=== PATIENT | female | born 1960 | race Caucasian/White ===

== ENCOUNTER 2021-06-20 15:13 | Emergency (ER) | payer BC ==
[~2021-06-20] VITALS: Ht 154.9 cm; Wt 86.6 kg
[2021-06-20 15:32] VITALS: BP 149/95
--- NOTE | 2021-06-20 15:36 | NUR ---
18G IV ESTABLISHED IN R AC
--- NOTE | 2021-06-20 15:37 | NUR ---
CODE BRAIN INITIATED
--- NOTE | 2021-06-20 15:40 | NUR ---
PT TAKEN TO CT
--- NOTE | 2021-06-20 16:08 | NUR ---
PT RETURNED TO BED [address] [facility] [facility]
--- NOTE | 2021-06-20 16:16 | NUR ---
LAB AT PATIENT BEDSIDE COLLECTING BLOODWORK
--- NOTE | 2021-06-20 16:24 | NUR ---
61Y FEMLAE BIB SELF FROM HOME WITH C/O LEFT SIDE NUMBNESS AND SLURRED SPEECH SINCE MONDAY. PER PATIENT SHE STARTED TO FEEL WEAK AND NOTED HER LEFT SIDE STARTED MONDAY MORNING. NIHSS CURRENTLY 0 AT THIS TIME. 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 PT IS AMBULATORY, BUT IS EXPERCING SOME DIZZINESS. PT DENIES ANY CHEST PAIN, SOB, FEVER/CHILLS, N/V. PT CURRENTLY A&OX4, PLACED ON SPECIFICATION MANAGER BEDSIDE AND PUT INTO GOWN. BLOOD SUGAR 152 AT THIS TIME. PMH: DM, HTN NKA
[2021-06-20 16:29] LABS: BASOPHILS # (AUTO) 0.1 K/uL (0.00-0.22); BASOPHILS % (AUTO) 0.9 % (0.0-2.0); EOSINOPHILS # (AUTO) 0.1 K/uL (0-0.4); EOSINOPHILS % (AUTO) 1.4 % (0.0-4.0); HEMATOCRIT 38.2 % (36-48); HEMOGLOBIN 13.5 g/dL (12.0-16.0); LYMPHOCYTES # (AUTO) 1.5 K/uL (2.5-16.5); MEAN CORPUSCULAR HEMOGLOBIN 31 pg (27-31); MEAN CORPUSCULAR HGB CONC 35 g/dL (33-37); MONOCYTES # (AUTO) 0.5 K/uL (0.8-1.0); MONOCYTES % (AUTO) 6.2 % (1.7-9.3); NEUTROPHILS # (AUTO) 5.1 K/uL (1.8-7.7); NEUTROPHILS % (AUTO) 70.5 % (42.2-75.2); PLATELET COUNT (AUTO) 271 K/uL (140-450); RED BLOOD CELL COUNT(AUTO) 4.38 MIL/uL (4.20-5.40); RED CELL DISTRIBUTION WIDTH 13.1 % (11.6-13.7); WHITE BLOOD COUNT (AUTO) 7.3 K/uL (4.8-10.8)
[2021-06-20 16:51] LABS: ALBUMIN 3.9 g/dL (3.4-5.0); ANION GAP 13.6 (8-16); ASPARTATE AMINOTRANSFERASE 24 U/L (15-37); CARBON DIOXIDE 27.8 mmol/L (21-32); CHLORIDE 104 mmol/L (98-107); GFR ARICAN-AMERICAN 72 mL/min (>90); GLUCOSE 134 mg/dL (74-106); LIPASE 103 U/L (73-393); POTASSIUM 3.4 mmol/L (3.5-5.1); SODIUM SERUM 142 mmol/L (136-145); TOTAL BILIRUBIN 0.4 mg/dL (0.0-1.0); UREA NITROGEN, BLOOD 12 mg/dL (7-18)
[2021-06-20] MEDS ORDERED: POTASSIUM CHLORIDE 10 MEQ TABER PO ONE (17:15)
--- NOTE | 2021-06-20 17:39 | NUR ---
Patient appears to be resting comfortably in bed. Vital Signs within normal limits. Respirations even and unlabored.
[2021-06-20 18:40] VITALS: BP 154/78
--- NOTE | 2021-06-20 18:40 | NUR ---
Patient does not wish to proceed with medical care recommended by . Patient given information related to possible complications, up to and including , which could occur as a result of leaving hospital at this time. Patient verbalizes understanding of risks involved leaving against medical advice. Patient has signed AMA form.
[2021-06-20 21:28] LABS: BARBITURATE, URINE NEGATIVE ng/ml (NEG <=200); BENZODIAZEPINE, URINE NEGATIVE ng/mL (NEG <=200); CANNABINOID, URINE NEGATIVE ng/mL (NEG <=50); COCAINE, URINE NEGATIVE ng/mL (NEG <=300); OPIATE, URINE NEGATIVE ng/mL (NEG <=2000); PHENCYCLIDINE SCREEN,URINE NEGATIVE ng/mL (NEG <=25)
== END 2021-06-20 18:40 | disposition left against medical advice (07) ==
LOC: MED 15:13
DX: G45.9 Transient cerebral ischemic attack, unspecified (principal); E11.9 Type 2 diabetes mellitus without complications; I10 Essential (primary) hypertension
CPT/HCPCS: 36415; 70450; 70496; 70498; 71045; 80053; 80305; 81002; 83690; 84484; 85025; 93005; 99285; G0482; Q0092; Q9967